=== PATIENT | male | born 1975 | race Caucasian/White ===

== ENCOUNTER → 2021-05-09 | Outpatient (CLI) | payer BC, OTHER | LOC: KOH-I 13:35 | DX: M79.671 Pain in right foot (principal); M79.672 Pain in left foot | CPT/HCPCS: 73630 ==

== ENCOUNTER → 2021-07-21 | Outpatient (CLI) | payer BC | LOC: US 08:22 → NM 09:00 | DX: R10.11 Right upper quadrant pain (principal); R11.0 Nausea; M54.50 Low back pain, unspecified; M47.26 Other spondylosis with radiculopathy, lumbar region; K80.20 Calculus of gallbladder without cholecystitis without obstruction; Z71.2 Person consulting for explanation of examination or test findings | CPT/HCPCS: 72110; 76705 ==

== ENCOUNTER 2021-09-23 03:31 | Emergency (ER) | payer OTHER | END 2021-09-23 05:28 | disposition home or self-care (01) | LOC: ER1 03:31 | DX: S62.622A Displaced fracture of middle phalanx of right middle finger, initial encounter for closed fracture (principal); S62.624A Displaced fracture of middle phalanx of right ring finger, initial encounter for closed fracture; Z23 Encounter for immunization; W22.8XXA Striking against or struck by other objects, initial encounter; Y92.9 Unspecified place or not applicable; Y99.0 Civilian activity done for income or pay | CPT/HCPCS: 73130; 90471; 99283 ==

== ENCOUNTER 2021-12-15 17:20 | Emergency (ER) | payer OTHER | END 2021-12-15 20:48 | disposition home or self-care (01) | LOC: ER1 17:20 | DX: S61.012A Laceration without foreign body of left thumb without damage to nail, initial encounter (principal); W45.8XXA Other foreign body or object entering through skin, initial encounter; Y99.0 Civilian activity done for income or pay | CPT/HCPCS: 12001; 73130; 90471; 90715; 99283 ==